=== PATIENT | female | born 1980 | race Caucasian/White ===

== ENCOUNTER 2018-02-06 13:48 | Emergency (ER) | payer OTHER ==
[2018-02-06 14:03] VITALS: BP 113/73; PULSE 90; TEMP 98.3; BMI 34.7
--- NOTE | 2018-02-06 16:21 | PDOC ---
History of Present Illness - General Chief Complaint: Laceration Stated Complaint: LACERATION Time Seen by Provider: 02/06/18 14:53 History Source: Patient - History of Present Illness Timing/Duration: reports: this morning Location: reports: other (hand) Past History - Past Medical History Allergies/Adverse Reactions: Allergies Allergy/AdvReac Type Severity Reaction Status Date / Time No Known Drug Allergies Allergy Verified 02/06/18 14:03 Home Medications: Ambulatory Orders NK [No Known Home Medication] 02/06/18 Anemia: No Asthma: No Cancer: No Cardiac Disorders: No CVA: No COPD: No CHF: No DVT: No Dementia: No Diabetes: No GI Disorders: No Disorders: No HTN: No Hypercholesterolemia: No Liver Disease: No Seizures: No Thyroid Disease: No - Surgical History Neurologic Surgery: Yes (neck fusion, lower back fusion) - Suicide/Smoking/Psychosocial Hx Smoking Status: No Smoking History: Never smoked Number of Cigarettes Smoked Daily: 0 Hx Alcohol Use: No Drug/Substance Use Hx: No Substance Use Type: None Hx Substance Use Treatment: No Review of Systems - Review of Systems Neurological: No: Numbness *Physical Exam - Vital Signs Last Vital Signs Temp Pulse Resp BP Pulse Ox 98.3 F 90 18 113/73 97 02/06/18 14:01 02/06/18 14:01 02/06/18 14:01 02/06/18 14:01 02/06/18 14:01 - Physical Exam General Appearance: Yes: Appropriately Dressed. No: Apparent Distress HEENT: positive: Normal Voice Neck: positive: Supple Respiratory/Chest: negative: Respiratory Distress Integumentary: positive: Dry, Warm Neurologic: positive: Fully Oriented, Alert, Normal Mood/Affect Procedures - Laceration/Wound Repair Right Hand Wound Length: 2.6 to 5.0 cm Wound Explored: clean Wound's Depth, Shape: superficial Irrigated w/ Saline: Yes Betadine Prep: Yes Amount of Anesthetic (ccs): 9 Wound Repaired With: Sutures Suture Size/Type: 5:0, nylon Number of Sutures: 10 Sterile Dressing Applied: Yes Medical Decision Making - Medical Decision Making 02/06/18 15:16 38 yo F, no sig hx, here w/ R thumb lac while handling broken glass today. No sensory changes. Tetanus UTD See exam Thumb lac -tetanus UTD -xr neg for fb -lac repair 02/06/18 16:22 *DC/Admit/Observation/Transfer Diagnosis at time of Disposition: Laceration - Discharge Dispostion Condition at time of disposition: Good - Referrals Referrals: Twin Woo MD [Primary Care Provider] - - Patient Instructions Printed Discharge Instructions: DI for Laceration Repair Additional Instructions: Keep dressing in place for at least 24 hours after which one can be opened to air and cover loosely with large bandage.. You can gently cleaned wound with mild soap and water after 24 hours to prevent crusting over the suture knots. You can also apply an antibiotic ointment twice a day until sutures are removed. Return for redness, discharge or fever Sutures are removed in 7 days - Post Discharge Activity
== END 2018-02-06 16:27 | disposition home or self-care (01) ==
LOC: JERFT 13:48
PROC: 0HQFXZZ Repair Right Hand Skin, External Approach (ICD-10-PCS; principal; 2018-02-06)
DX: S61.011A Laceration without foreign body of right thumb without damage to nail, initial encounter (principal); W25.XXXA Contact with sharp glass, initial encounter; Y93.89 Activity, other specified; Y92.89 Other specified places as the place of occurrence of the external cause; Y99.8 Other external cause status
CPT/HCPCS: 12011; 73130-TC-RT-FY; 99281-25

== ENCOUNTER 2018-02-13 15:34 | Emergency (ER) | payer OTHER ==
[2018-02-13 15:39] VITALS: BP 109/76; PULSE 100; TEMP 97.8; BMI 36.6
--- NOTE | 2018-02-13 15:56 | PDOC ---
Suture Removal/Wound Check HPI - History of Present Illness Chief Complaint: Suture/Staple Removal(Here) Stated Complaint: Suture/Staple Removal(Here) Time Seen by Provider: 02/13/18 15:55 History Source: Yes: Patient Exam Limitations: Yes: No Limitations Treated at: [facility] ED - Previous ED Treatment Type of procedure performed on last visit: Yes: Laceration Repair Tetanus Immunization: Yes: Up to Date - Onset of Previous Treatment Select one - (for the option above): Days (7) Past History - Past Medical History Allergies/Adverse Reactions: Allergies Allergy/AdvReac Type Severity Reaction Status Date / Time No Known Drug Allergies Allergy Verified 02/13/18 15:36 Home Medications: Ambulatory Orders NK [No Known Home Medication] 02/06/18 Anemia: No Asthma: No Cancer: No Cardiac Disorders: No CVA: No COPD: No CHF: No DVT: No Dementia: No Diabetes: No GI Disorders: No Disorders: No HTN: No Hypercholesterolemia: No Liver Disease: No Seizures: No Thyroid Disease: No - Surgical History Cholecystectomy: Yes Neurologic Surgery: Yes (neck fusion, lower back fusion) - Immunization History Immunization Up to Date: Yes - Suicide/Smoking/Psychosocial Hx Smoking Status: No Smoking History: Never smoked Number of Cigarettes Smoked Daily: 0 Information on smoking cessation initiated: No Hx Alcohol Use: No Drug/Substance Use Hx: No Substance Use Type: None Hx Substance Use Treatment: No Suture Removal/Wound Check PE - Physical Exam Laceration/Wound Check Symptoms: reports: None Location of Laceration/Wound: right: Hand (thumb) *Review of Systems - Review of Systems Able to Perform ROS?: Yes Constitutional: No: Fever Musculoskeletal: No: Joint Pain, Joint Swelling Integumentary: Yes: Other (no signs of infection). No: Bruising, Rash Neurological: No: Numbness, Tingling *Physical Exam - Vital Signs Last Vital Signs Temp Pulse Resp BP Pulse Ox 97.8 F 100 H 18 109/76 100 02/13/18 15:36 02/13/18 15:36 02/13/18 15:36 02/13/18 15:36 02/13/18 15:36 Medical Decision Making - Medical Decision Making 02/13/18 16:12 He 38-year-old female here for suture removal right hand, no signs of infection , small amount of dehiscence with some sutures removed, remainder remain, Steri- Strips applied, patient will return in 3 days for further evaluation. *DC/Admit/Observation/Transfer Diagnosis at time of Disposition: Visit for suture removal - Discharge Dispostion Disposition: HOME Condition at time of disposition: Stable Decision to Admit order: No - Referrals Referrals: Twin Woo MD [Primary Care Provider] - - Patient Instructions Printed Discharge Instructions: Skin Wound Additional Instructions: Clean with soap and water 2-3 times daily, apply bacitracin Have her reevaluated if redness, pus, fever or getting worse return in 3 days to have rest of suture removed if ready - Post Discharge Activity
== END 2018-02-13 16:11 | disposition home or self-care (01) ==
LOC: JERFT 15:34
DX: Z48.817 Encounter for surgical aftercare following surgery on the skin and subcutaneous tissue (principal); Z48.02 Encounter for removal of sutures
CPT/HCPCS: 99281-25

== ENCOUNTER 2018-08-11 10:49 | Emergency (ER) | payer OTHER ==
[2018-08-11 11:01] VITALS: BP 113/66; PULSE 74; TEMP 98; BMI 36.6
--- NOTE | 2018-08-11 11:54 | PDOC ---
History of Present Illness - General Chief Complaint: Sore Throat Stated Complaint: ABD PAIN/SORE THROAT Time Seen by Provider: 08/11/18 11:43 History Source: Patient Exam Limitations: No Limitations (sorethroat and cough X 3 days) - History of Present Illness Associated Symptoms: reports: cough. denies: diaphoresis, fever/chills, headaches, loss of appetite, rash, shortness of breath Past History - Travel Close contact w/someone who was outside of country & ill: No - Past Medical History Allergies/Adverse Reactions: Allergies Allergy/AdvReac Type Severity Reaction Status Date / Time No Known Drug Allergies Allergy Verified 08/11/18 11:00 Home Medications: Ambulatory Orders Benzonatate [Tessalon Pearls -] 100 mg PO TID #21 capsule 08/11/18 Ibuprofen 600 mg PO ACDIN 7 Days #21 tablet 08/11/18 Anemia: No Asthma: No Cancer: No Cardiac Disorders: No CVA: No COPD: No CHF: No DVT: No Dementia: No Diabetes: No GI Disorders: No Disorders: No HTN: No Hypercholesterolemia: No Liver Disease: No Seizures: No Thyroid Disease: No - Surgical History Cholecystectomy: Yes Neurologic Surgery: Yes (neck fusion, lower back fusion) - Immunization History Immunization Up to Date: Yes - Suicide/Smoking/Psychosocial Hx Smoking Status: No Smoking History: Never smoked Number of Cigarettes Smoked Daily: 0 Hx Alcohol Use: No Drug/Substance Use Hx: No Substance Use Type: None Hx Substance Use Treatment: No Review of Systems - Review of Systems Constitutional: No: Chills, Fever HEENTM: Yes: Nose Congestion, Throat Pain Respiratory: Yes: Cough, Productive cough. No: Shortness of Breath, Wheezing Cardiac (ROS): No: Chest Pain Neurological: No: Headache *Physical Exam - Vital Signs Last Vital Signs Temp Pulse Resp BP Pulse Ox 98 F 74 18 113/66 98 08/11/18 11:00 08/11/18 11:00 08/11/18 11:00 08/11/18 11:00 08/11/18 11:00 - Physical Exam General Appearance: Yes: Nourished HEENT: positive: EOMI, YESSICA, Normal ENT Inspection, Pharyngeal Erythema, Nasal Congestion, Rhinorrhea. negative: Tonsillar Exudate, Tonsillar Erythema Respiratory/Chest: positive: Lungs Clear, Normal Breath Sounds Cardiovascular: positive: Regular Rhythm, Regular Rate, S1, S2 Musculoskeletal: positive: Normal Inspection Extremity: positive: Normal Capillary Refill, Normal Inspection Integumentary: positive: Normal Color Neurologic: positive: academic director II-XII NML intact, Fully Oriented, Alert, Normal Response Medical Decision Making - Medical Decision Making 08/11/18 11:53 38y/o F with sorethroat and cough X 2 days, denies f/c, CP or SOB exam with mildly erythetamous oropharyx RS sent 08/11/18 12:45 RS neg *DC/Admit/Observation/Transfer Diagnosis at time of Disposition: URI, acute - Discharge Dispostion Disposition: HOME Condition at time of disposition: Stable Decision to Admit order: No - Prescriptions Prescriptions: Benzonatate [Tessalon Pearls -] 100 mg PO TID #21 capsule Ibuprofen 600 mg PO ACDIN 7 Days #21 tablet - Referrals Referrals: Colleen Rivera MD [Primary Care Provider] - - Patient Instructions Printed Discharge Instructions: Common Cold Additional Instructions: Your strep test was negative . Please gargle with salt warm water, take motrin for pain Follow up with your primary care doctor Return to the Emergency Department if worsening symptoms occurs. - Post Discharge Activity
== END 2018-08-11 12:50 | disposition home or self-care (01) ==
LOC: JERFT 10:49
DX: J06.9 Acute upper respiratory infection, unspecified (principal)
CPT/HCPCS: 87070; 87880; 99281-25

== ENCOUNTER 2018-08-13 19:34 | Emergency (ER) | payer OTHER ==
[2018-08-13 19:48] VITALS: BP 114/75; PULSE 94; TEMP 98.1; BMI 37.5
--- NOTE | 2018-08-13 21:13 | PDOC ---
History of Present Illness - General Chief Complaint: Edema Stated Complaint: EYE SWELLING Time Seen by Provider: 08/13/18 20:51 History Source: Patient Exam Limitations: No Limitations Past History - Past Medical History Allergies/Adverse Reactions: Allergies Allergy/AdvReac Type Severity Reaction Status Date / Time No Known Drug Allergies Allergy Verified 08/11/18 11:00 Home Medications: Ambulatory Orders Benzonatate [Tessalon Pearls -] 100 mg PO TID #21 capsule 08/11/18 Ibuprofen 600 mg PO ACDIN 7 Days #21 tablet 08/11/18 Amoxicillin/Potassium Clav [Augmentin 875-125 Tablet] 1 each PO BID #14 tablet 08/13/18 Anemia: No Asthma: No Cancer: No Cardiac Disorders: No CVA: No COPD: No CHF: No DVT: No Dementia: No Diabetes: No GI Disorders: No Disorders: No HTN: No Hypercholesterolemia: No Liver Disease: No Seizures: No Thyroid Disease: No - Surgical History Cholecystectomy: Yes Neurologic Surgery: Yes (neck fusion, lower back fusion) - Immunization History Immunization Up to Date: Yes - Suicide/Smoking/Psychosocial Hx Smoking Status: No Smoking History: Never smoked Number of Cigarettes Smoked Daily: 0 Hx Alcohol Use: No Drug/Substance Use Hx: No Substance Use Type: None Hx Substance Use Treatment: No *Physical Exam - Vital Signs Last Vital Signs Temp Pulse Resp BP Pulse Ox 98.1 F 94 H 20 114/75 97 08/13/18 19:45 08/13/18 19:45 08/13/18 19:45 08/13/18 19:45 08/13/18 19:45 - Physical Exam HEENT: positive: EOMI, YESSICA, Other (+R upper eyelid swelling with erythema, no pain on eye movement, no proptosis, no chemosis, no stye noted) Neurologic: positive: Alert, Normal Mood/Affect Medical Decision Making - Medical Decision Making 38 y/o F with hx of spinal fusion, carpal tunnel presents with R upper eyelid swelling from yesterday. Denies trauma, fever, changes to vision, pain with eye movement, discharge, itching, photophobia, n/v. Concern for possible developing periorbital cellulitis No suspicion for orbital cellulitis given PE Will start on Augmentin Return precautions d/w patient 08/13/18 21:09 *DC/Admit/Observation/Transfer Diagnosis at time of Disposition: Periorbital cellulitis Qualifiers: Laterality: right Qualified Code(s): L03.213 - Periorbital cellulitis - Discharge Dispostion Disposition: HOME Condition at time of disposition: Stable Decision to Admit order: No - Prescriptions Prescriptions: Amoxicillin/Potassium Clav [Augmentin 875-125 Tablet] 1 each PO BID #14 tablet - Referrals - Patient Instructions Printed Discharge Instructions: DI for Cellulitis -- Adult Additional Instructions: Thank you for choosing [facility]. It was a pleasure taking care of you. You may possibly have concern for infection around the eye, for which you were started on Augmentin Take as prescribed and follow-up with your PCP in 2 days. Return to the Emergency Department if your symptoms worsen or persist, you have fever, changes in vision, pain on eye movement, increased swelling/redness or other concerning symptoms. - Post Discharge Activity
== END 2018-08-13 21:14 | disposition home or self-care (01) ==
LOC: JERFT 19:34
DX: L03.213 Periorbital cellulitis (principal)
CPT/HCPCS: 99281-25

== ENCOUNTER 2018-12-10 05:38 | Emergency (ER) | payer OTHER | END 2018-12-10 08:04 | disposition home or self-care (01) | LOC: JER 05:38 ==

== ENCOUNTER 2019-01-04 13:08 | Emergency (ER) | payer OTHER ==
[2019-01-04 13:20] VITALS: BP 114/77; PULSE 80; TEMP 97.9; BMI 35.3
[2019-01-04] MEDS ORDERED: KETOROLAC TROMETHAMINE 60 MG/2 ML VIAL IM ONE (14:17)
[2019-01-04] MEDS ORDERED: LIDOCAINE 5% TOPICAL PATCH TP ONE (14:17)
[2019-01-04] MEDS ORDERED: LIDOCAINE 5% TOPICAL PATCH ONE (14:21)
[2019-01-04] MEDS ORDERED: KETOROLAC TROMETHAMINE 30 MG/1 ML VIAL ONE (14:21)
--- NOTE | 2019-01-04 14:21 | PDOC ---
History of Present Illness - General Chief Complaint: Pain Stated Complaint: LOWER BACK PAIN Time Seen by Provider: 01/04/19 14:05 History Source: Patient Exam Limitations: No Limitations Past History - Travel Traveled outside of the country in the last 30 days: No Close contact w/someone who was outside of country & ill: No - Past Medical History Allergies/Adverse Reactions: Allergies Allergy/AdvReac Type Severity Reaction Status Date / Time No Known Drug Allergies Allergy Verified 01/04/19 13:20 Home Medications: Ambulatory Orders Benzonatate [Tessalon Pearls -] 100 mg PO TID #21 capsule 08/11/18 Ibuprofen 600 mg PO ACDIN 7 Days #21 tablet 08/11/18 Amoxicillin/Potassium Clav [Augmentin 875-125 Tablet] 1 each PO BID #14 tablet 08/13/18 Phenol/Glycerin [Chloraseptic Max [place]] 30 ml MM TID PRN #1 spray 12/10/18 Cyclobenzaprine HCl [Flexeril -] 10 mg PO HS #10 tablet 01/04/19 Ibuprofen 800 mg PO TID #30 tablet 01/04/19 Anemia: No Asthma: No Cancer: No Cardiac Disorders: No CVA: No COPD: No CHF: No DVT: No Dementia: No Diabetes: No GI Disorders: No Disorders: No HTN: No Hypercholesterolemia: No Liver Disease: No Seizures: No Thyroid Disease: No Other medical history: chronic back pain - Surgical History Cholecystectomy: Yes Neurologic Surgery: Yes (neck fusion, lower back fusion) - Immunization History Td Vaccination: Yes TDAP Vaccination: Yes Immunization Up to Date: Yes - Suicide/Smoking/Psychosocial Hx Smoking Status: No Smoking History: Never smoked Have you smoked in the past 12 months: No Number of Cigarettes Smoked Daily: 0 Hx Alcohol Use: No Drug/Substance Use Hx: No Substance Use Type: None Hx Substance Use Treatment: No Review of Systems - Review of Systems Able to Perform ROS?: Yes Comments:: 01/04/19 14:15 CONSTITUTIONAL: Absent: fever, chills, diaphoresis, generalized weakness, malaise, loss of appetite GASTROINTESTINAL: Absent: abdominal pain, abdominal distension, nausea, vomiting, diarrhea, constipation, melena, hematochezia GENITOURINARY: Absent: dysuria, frequency, urgency, hesitancy, hematuria, flank pain, genital pain MUSCULOSKELETAL: Present: low back pain Absent: arthralgia, joint swelling SKIN: Absent: rash, itching, pallor NEUROLOGIC: Absent: headache, focal weakness or paresthesias, dizziness, unsteady gait, seizure, mental status changes, bladder or bowel incontinence PSYCHIATRIC: Absent: anxiety, depression, suicidal or homicidal ideation, hallucinations. Is the patient limited Slovenian proficient: No *Physical Exam - Vital Signs Last Vital Signs Temp Pulse Resp BP Pulse Ox 97.9 F 80 18 114/77 99 01/04/19 13:17 01/04/19 13:17 01/04/19 13:17 01/04/19 13:17 01/04/19 13:17 - Physical Exam Comments: 01/04/19 14:16 GENERAL: Well developed, well nourished. Awake and alert. No acute distress. HEENT: Normocephalic, atraumatic. PERRLA, EOMI. No conjunctival pallor. Sclera are non- icteric. Moist mucous membranes. Oropharynx is clear. NECK: Supple. Full ROM. No JVD. Carotid pulses 2+ and symmetric, without bruits. No thyromegaly. No lymphadenopathy. MUSCULOSKELETAL TTP of the B/L paraspinous muscles, L5-S1, with palpable knot consistent with muscle spasm. (-) straight leg raise. No midline tenderness. Normal range of motion at all joints. No bony deformities or tenderness. No CVA tenderness. EXTREMITIES: No cyanosis. No clubbing. No edema. No calf tenderness. SKIN: Warm and dry. Normal capillary refill. No rashes. No jaundice. NEUROLOGICAL: Alert, awake, appropriate. Cranial nerves 2-12 intact. No deficits to light touch and temperature in face, upper extremities and lower extremities. No motor deficits in the in face, upper extremities and lower extremities. Normoreflexic in the upper and lower extremities. Normal speech. Toes are down- going bilaterally. Gait is normal without ataxia. PSYCHIATRIC: Cooperative. Good eye contact. Appropriate mood and affect. Medical Decision Making - Medical Decision Making 01/04/19 14:17 The patient is a 38-year-old obese female who presents to the ER today with low back pain. She states that she had back pain starting at 11. It is worse with movement. She states that yesterday she drove up to [place] and slept on a couch. She then drove back to [place] this morning. She has not taken any medication for her symptoms. Denies fevers, chills, trauma, numbness and tingling to the extremities, weakness to the extremities, saddle anesthesia and bladder bowel incontinence. A/P: Low back pain -Pt with TTP of the B/L paraspinous muscles, L5-S1, with palpable knot consistent with muscle spasm. (-) straight leg raise. No midline tenderness -No trauma, or fever. No saddle anesthesia or bladder/bowel incontinence. No CVA tenderness. -Pt is neurologically intact on exam with no focal findings. -Toradol given with relief of symptoms -DC home. Pt to f/u with her PCP. Ortho referral given. -I discussed the physical exam findings, ancillary test results and final diagnoses with the patient. I answered all of the patient's questions. The patient was satisfied with the care received and felt comfortable with the discharge plan and treatment plan. The Patient agrees to follow up with the primary care physician/specialist within 24-72 hours. Return precautions were given. *DC/Admit/Observation/Transfer Diagnosis at time of Disposition: Low back pain Qualifiers: Chronicity: acute Back pain laterality: bilateral Sciatica presence: without sciatica Qualified Code(s): M54.5 - Low back pain - Discharge Dispostion Disposition: HOME Condition at time of disposition: Stable Decision to Admit order: No - Referrals Referrals: Twin Woo MD [Primary Care Provider] - - Patient Instructions Printed Discharge Instructions: DI for Low Back Pain Additional Instructions: You were evaluated for your low back pain today. It is most likely due to a muscle spasm Please take the Motrin as directed Take the Flexiril every 8 hours the first day. Then take the medication at night only. Do not drink or drive after taking this medication as it may make you drowsy. You may apply warm compresses to the area. Please follow up with orthopedics if your symptoms do not improve this week; a referral has been provided to you Return to the ER for worsening pain despite treatment, numbness/weakness down the extremities, changes in the way you walk, numbness/tingling to the groin, if you have bladder/bowel incontinence, or if you have any changes in your symptoms. - Post Discharge Activity Forms/Work/School Notes: Back to Work
[2019-01-04] MEDS ORDERED: LIDOCAINE PATCH REMOVAL MC SCH (22:00)
== END 2019-01-04 14:32 | disposition home or self-care (01) ==
LOC: JERFT 13:08
PROC: 3E0233Z Introduction of Anti-inflammatory into Muscle, Percutaneous Approach (ICD-10-PCS; principal; 2019-01-04)
DX: M54.5 Low back pain (principal); E66.9 Obesity, unspecified; Z68.35 Body mass index [BMI] 35.0-35.9, adult
CPT/HCPCS: 96372; 99281-25

== ENCOUNTER 2020-10-22 04:23 | Day surgery (SDC) | payer OTHER ==
[2020-10-19 11:57] VITALS: BMI 38.0
[2020-10-22] MEDS ORDERED: ROPIVACAINE HCL 0.5% 30ML VIAL ONE (08:52)
[2020-10-22] MEDS ORDERED: MIDAZOLAM HCL 2 MG/2 ML SINGLE DOSE VIAL ONE ×2 (08:53)
[2020-10-22] MEDS ORDERED: LIDOCAINE HCL/PF 2% SDV 5ML VIAL ONE (10:13)
[2020-10-22] MEDS ORDERED: ONDANSETRON 4 MG/2 ML VIAL ONE (10:13)
[2020-10-22] MEDS ORDERED: DEXAMETHASONE SOD PHOSPHATE 4 MG/1 ML VIAL ONE (10:13)
[2020-10-22] MEDS ORDERED: PROPOFOL 20 ML ONE (10:14)
[2020-10-22] MEDS ORDERED: ceFAZolin SODIUM 1 GM VIAL ONE (10:35)
[2020-10-22] MEDS ORDERED: ceFAZolin SODIUM 1 GM VIAL IVPB ONE (10:35)
[2020-10-22] MEDS ORDERED: ONDANSETRON 4 MG/2 ML VIAL IVPUSH PRN (12:29)
[2020-10-22] MEDS ORDERED: oxyCODONE HCL 5 MG TABLET PO PRN (12:29)
[2020-10-22] MEDS ORDERED: PROMETHAZINE HCL 25 MG/1 ML VIAL IVPB PRN (12:29)
[2020-10-22] MEDS ORDERED: LACTATED RINGERS SOLUTION 1,000 ML IV SCH (12:30)
[2020-10-22 15:42] VITALS: BP 110/58; PULSE 74; TEMP 97.5
== END 2020-10-22 15:36 | disposition home or self-care (01) ==
LOC: JASU-SURG 04:23
PROVIDERS: ATTEND Orthopaedic Surgery
PROC: 0PB94ZZ Excision of Right Clavicle, Percutaneous Endoscopic Approach (ICD-10-PCS; 2020-10-22)
PROC: 0RNJ4ZZ Release Right Shoulder Joint, Percutaneous Endoscopic Approach (ICD-10-PCS; 2020-10-22)
PROC: 0RNJ4ZZ Release Right Shoulder Joint, Percutaneous Endoscopic Approach (ICD-10-PCS; principal; 2020-10-22 10:00)
DX: M75.41 Impingement syndrome of right shoulder (principal); M13.811 Other specified arthritis, right shoulder; M75.111 Incomplete rotator cuff tear or rupture of right shoulder, not specified as traumatic
CPT/HCPCS: 81025; 88304-TC; 94760

== ENCOUNTER 2021-03-03 13:24 | Emergency (ER) | payer OTHER ==
[2021-03-03 13:40] VITALS: BP 117/78; PULSE 89; TEMP 97; BMI 37.6
[2021-03-03] MEDS ORDERED: ACETAMINOPHEN 500 MG TABLET (FP) PO ONE (14:16)
== END 2021-03-03 17:31 | disposition home or self-care (01) ==
LOC: JERFT 13:24 → JER 13:24 → JERFT 17:31
DX: M79.642 Pain in left hand (principal)
CPT/HCPCS: 73130-TC-LT-FY; 99284-25

== ENCOUNTER 2021-04-02 01:35 | Emergency (ER) | payer OTHER ==
[2021-04-02 02:13] VITALS: BP 110/74; PULSE 105; TEMP 99.1; BMI 36.9
[2021-04-02] MEDS ORDERED: ACETAMINOPHEN 1000 MG/100 ML VIAL IVPB ONE (02:21)
[2021-04-02] MEDS ORDERED: SODIUM CHLORIDE 1,000 ML IV STA (02:21)
[2021-04-02] MEDS ORDERED: ACETAMINOPHEN INJECTION 100 ML IVPB ONE (02:57)
[2021-04-02 03:41] LABS: BASO % 0.2 % (0-2.0); EOS % 0.6 % (0-4.5); HEMATOCRIT 34.3 % (32.4-45.2); HEMOGLOBIN 11.6 GM/dL (10.7-15.3); MCH 28.1 pg (25.7-33.7); MCHC 33.7 g/dl (32.0-36.0); MEAN CELL VOLUME 83.2 fl (80-96); MEAN PLT VOLUME 8.1 fl (7.5-11.1); MONO % 5.5 % (3.8-10.2); NEUT % 78.7 % (42.8-82.8); PLATELET COUNT 393 10^3/uL (134-434); RBC 4.12 M/mm3 (3.60-5.2); RDW 14.2 % (11.6-15.6); WHITE BLOOD COUNT 11.3 K/mm3 (4.0-10.0)
[2021-04-02 04:01] LABS: CALCIUM 9.7 mg/dL (8.5-10.1)
[2021-04-02 04:02] LABS: ALBUMIN 3.8 g/dl (3.4-5.0); BLOOD UREA NITROGEN 11.8 mg/dL (7-18)
[2021-04-02 04:05] LABS: CREATININE 0.7 mg/dL (0.55-1.3)
[2021-04-02 04:07] LABS: BILIRUBIN,TOTAL 1.2 mg/dL (0.2-1); TOT PROT 7.8 g/dl (6.4-8.2)
[2021-04-02 05:32] LABS: EPI CELLS 28 /uL (0-25.1); HYALINE CASTS 0 /uL (0-3.1); PH,URINE 5.5 (5.0-8.0); URINE APPEARANCE CLEAR; URINE BACTERIA 186 /uL (0-1359); URINE BILIRUBIN NEGATIVE (NEGATIVE); URINE COLOR YELLOW; URINE GLUCOSE (UA) NEGATIVE (NEGATIVE); URINE KETONE TRACE (NEGATIVE); URINE LEUK ESTERASE TRACE (NEGATIVE); URINE NITRITE NEGATIVE (NEGATIVE); URINE PROTEIN NEGATIVE (NEGATIVE); URINE RBC 33 /uL (0-23.9); URINE UROBILINOGEN 0.2 mg/dL (0.2-1.0); URINE WBC 14 /uL (0-25.8)
== END 2021-04-02 06:51 | disposition home or self-care (01) ==
LOC: JER 01:35
PROC: 3E033NZ Introduction of Analgesics, Hypnotics, Sedatives into Peripheral Vein, Percutaneous Approach (ICD-10-PCS; principal; 2021-04-02)
PROC: 3E0337Z Introduction of Electrolytic and Water Balance Substance into Peripheral Vein, Percutaneous Approach (ICD-10-PCS; 2021-04-02)
DX: R10.9 Unspecified abdominal pain (principal); K59.00 Constipation, unspecified
CPT/HCPCS: 36415; 74177-TC; 80053; 81003; 84703; 85025; 87086; 96361; 96374; 99284-25; C9803; J0131; Q9967; U0003; U0005

== ENCOUNTER 2022-06-03 02:31 | Emergency (ER) | payer OTHER ==
[2022-06-03 02:45] VITALS: BP 104/68; PULSE 97; RESP 18; TEMP 98; BMI 37.5
[2022-06-03 03:40] LABS: PH,URINE 5.5 (5.0-8.0); URINE APPEARANCE CLOUDY; URINE BILIRUBIN NEGATIVE (NEGATIVE); URINE COLOR YELLOW; URINE GLUCOSE (UA) 3+ (NEGATIVE); URINE KETONE TRACE (NEGATIVE); URINE LEUK ESTERASE NEGATIVE (NEGATIVE); URINE NITRITE NEGATIVE (NEGATIVE); URINE PROTEIN NEGATIVE (NEGATIVE); URINE UROBILINOGEN 0.2 mg/dL (0.2-1.0)
[2022-06-03 03:43] LABS: HCG,QUALITATIVE URINE Negative
[2022-06-03 04:18] LABS: BASO % 0.6 % (0-2.0); EOS % 1.3 % (0-4.5); HEMATOCRIT 40.6 % (32.4-45.2); HEMOGLOBIN 13.6 GM/dL (10.7-15.3); LYMPH % 13.8 % (8-40); MCH 29.7 pg (25.7-33.7); MCHC 33.6 g/dl (32.0-36.0); MEAN CELL VOLUME 88.4 fl (80-96); MEAN PLT VOLUME 7.3 fl (7.5-11.1); MONO % 5.2 % (3.8-10.2); NEUT % 79.1 % (42.8-82.8); PLATELET COUNT 341 10^3/uL (134-434); RBC 4.59 M/mm3 (3.60-5.2); RDW 13.6 % (11.6-15.6); WHITE BLOOD COUNT 10.8 K/mm3 (4.0-10.0)
[2022-06-03 04:29] LABS: INR 1.12 (0.83-1.09); PROTHROMBIN TIME (PATIENT) 12.9 SEC (9.7-13.0)
[2022-06-03 04:32] LABS: ACTIVATED PTT 31.6 SECONDS (25.2-36.5)
[2022-06-03 04:37] LABS: CALCIUM 9.2 mg/dL (8.5-10.1)
[2022-06-03 04:38] LABS: ALBUMIN 3.9 g/dl (3.4-5.0); BLOOD UREA NITROGEN 13.8 mg/dL (7-18)
[2022-06-03 04:40] LABS: CREATININE 0.7 mg/dL (0.55-1.3)
[2022-06-03 04:42] LABS: BILIRUBIN,TOTAL 1.4 mg/dL (0.2-1); TOT PROT 7.4 g/dl (6.4-8.2)
== END 2022-06-03 06:28 | disposition home or self-care (01) ==
LOC: JER 02:31
DX: K57.92 Diverticulitis of intestine, part unspecified, without perforation or abscess without bleeding (principal)
CPT/HCPCS: 0241U-QW; 36415; 74177-TC; 80053; 81003; 83690; 84703; 85025; 85610; 85730; 87086; 99285-25; Q9967

== ENCOUNTER 2022-06-04 21:39 | Emergency (ER) | payer OTHER ==
[2022-06-04 22:00] VITALS: BP 119/75; PULSE 91; RESP 20; TEMP 97.9; BMI 37.5
[2022-06-04] MEDS ORDERED: IBUPROFEN 600 MG TABLET (FP) PO ONE ×2 (23:21→23:26)
== END 2022-06-05 00:16 | disposition home or self-care (01) ==
LOC: JER 21:39
DX: M25.561 Pain in right knee (principal)
CPT/HCPCS: 73562-TC-RT-FY; 99283-25

== ENCOUNTER 2022-06-25 13:43 | Emergency (ER) | payer OTHER ==
[2022-06-25 14:05] VITALS: BP 110/70; PULSE 84; RESP 18; TEMP 97.9; BMI 38.0
[2022-06-25] MEDS ORDERED: ACETAMINOPHEN WITH CODEINE 300MG/30MG TABLET PO ONE (14:28)
[2022-06-25] MEDS ORDERED: LIDOCAINE 5% TOPICAL PATCH TP ONE (14:28)
[2022-06-25] MEDS ORDERED: LIDOCAINE 5% TOPICAL PATCH ONE (14:39)
[2022-06-25] MEDS ORDERED: ACETAMINOPHEN W/ CODEINE LIQ 5 ML CUP PO ONE (15:00)
[2022-06-25] MEDS ORDERED: ACETAMINOPHEN W/ CODEINE LIQ 5 ML CUP ONE (15:02)
[2022-06-25 17:16] LABS: URINE APPEARANCE CLEAR; URINE COLOR YELLOW
[2022-06-25 17:17] LABS: EPI CELLS 0.1 /uL (0-25.1); PH,URINE 5.5 (5.0-8.0); URINE BACTERIA 11.4 /uL (0-1359); URINE BILIRUBIN NEGATIVE (NEGATIVE); URINE KETONE TRACE (NEGATIVE); URINE LEUK ESTERASE NEGATIVE (NEGATIVE); URINE NITRITE NEGATIVE (NEGATIVE); URINE PROTEIN NEGATIVE (NEGATIVE); URINE RBC 19.7 /uL (0-23.9); URINE UROBILINOGEN 0.2 mg/dL (0.2-1.0); URINE WBC 1.6 /uL (0-25.8)
[2022-06-25] MEDS ORDERED: LIDOCAINE PATCH REMOVAL MC SCH (22:00)
== END 2022-06-25 17:47 | disposition home or self-care (01) ==
LOC: JER 13:43
DX: M54.50 Low back pain, unspecified (principal)
CPT/HCPCS: 72100-TC-FY; 81003; 87086; 99284-25

== ENCOUNTER 2022-10-04 11:05 | Emergency (ER) | payer OTHER ==
[2022-10-04 11:09] VITALS: BP 103/61; PULSE 92; RESP 18; TEMP 98.2; BMI 34.4
[2022-10-04 13:36] LABS: PH,URINE 5.5 (5.0-8.0); URINE APPEARANCE CLEAR; URINE BILIRUBIN NEGATIVE (NEGATIVE); URINE COLOR YELLOW; URINE GLUCOSE (UA) 3+ (NEGATIVE); URINE KETONE NEGATIVE (NEGATIVE); URINE LEUK ESTERASE NEGATIVE (NEGATIVE); URINE NITRITE NEGATIVE (NEGATIVE); URINE PROTEIN NEGATIVE (NEGATIVE); URINE UROBILINOGEN 0.2 mg/dL (0.2-1.0)
[2022-10-04 15:20] LABS: BASO % 0.1 % (0-2.0); EOS % 0.5 % (0-4.5); HEMATOCRIT 40.7 % (32.4-45.2); HEMOGLOBIN 14.2 GM/dL (10.7-15.3); LYMPH % 19.7 % (8-40); MCH 30.3 pg (25.7-33.7); MCHC 34.8 g/dl (32.0-36.0); MEAN CELL VOLUME 86.9 fl (80-96); MEAN PLT VOLUME 7.9 fl (7.5-11.1); MONO % 5.3 % (3.8-10.2); NEUT % 74.4 % (42.8-82.8); PLATELET COUNT 358 10^3/uL (134-434); POTASSIUM 4.1 mmol/L (3.5-5.1); RBC 4.69 M/mm3 (3.60-5.2); RDW 13.1 % (11.6-15.6); WHITE BLOOD COUNT 8.8 K/mm3 (4.0-10.0)
[2022-10-04 15:23] LABS: CALCIUM 9.6 mg/dL (8.5-10.1)
[2022-10-04 15:24] LABS: ALBUMIN 3.9 g/dl (3.4-5.0); BLOOD UREA NITROGEN 14.2 mg/dL (7-18)
[2022-10-04 15:26] LABS: BILIRUBIN,DIRECT 0.4 mg/dL (0.0-0.2); CREATININE 0.6 mg/dL (0.55-1.3)
[2022-10-04 15:28] LABS: TOT PROT 7.5 g/dl (6.4-8.2)
[2022-10-04 15:29] LABS: BILIRUBIN,TOTAL 1.5 mg/dL (0.2-1)
[2022-10-04] MEDS ORDERED: CIPROFLOXACIN 500 MG TABLET (RESTRICTED TO ID) PO ONE (18:37)
[2022-10-04] MEDS ORDERED: metroNIDAZOLE 250 MG TABLET PO ONE (18:37)
[2022-10-04] MEDS ORDERED: metroNIDAZOLE 250 MG TABLET ONE (18:56)
== END 2022-10-04 19:29 | disposition home or self-care (01) ==
LOC: JER 11:05
DX: R10.31 Right lower quadrant pain (principal); R10.32 Left lower quadrant pain; K57.32 Diverticulitis of large intestine without perforation or abscess without bleeding
CPT/HCPCS: 36415; 74177-TC; 80048; 80076; 81003; 84703; 85025; 87086; 87491; 87591; 99285-25; Q9967

== ENCOUNTER 2023-03-29 18:56 | Emergency (ER) | payer OTHER ==
[2023-03-29 19:04] VITALS: BP 118/76; PULSE 88; RESP 18; TEMP 98.2; BMI 32.9
[2023-03-29] MEDS ORDERED: ACETAMINOPHEN 1000 MG/100 ML BAG IVPB ONE (20:14)
[2023-03-29 20:27] LABS: BASO % 0.4 % (0-2.0); EOS % 3.4 % (0-4.5); HEMATOCRIT 39.4 % (32.4-45.2); HEMOGLOBIN 13.1 GM/dL (10.7-15.3); LYMPH % 12.4 % (8-40); MCHC 33.2 g/dl (32.0-36.0); MEAN CELL VOLUME 90.1 fl (80-96); MEAN PLT VOLUME 7.9 fl (7.5-11.1); NEUT % 79.8 % (42.8-82.8); PLATELET COUNT 351 10^3/uL (134-434); RBC 4.37 M/mm3 (3.60-5.2); RDW 12.4 % (11.6-15.6); WHITE BLOOD COUNT 11.5 K/mm3 (4.0-10.0)
[2023-03-29 20:29] LABS: PH,URINE 5.5 (5.0-8.0); URINE APPEARANCE CLEAR; URINE BILIRUBIN NEGATIVE (NEGATIVE); URINE COLOR YELLOW; URINE GLUCOSE (UA) 3+ (NEGATIVE); URINE KETONE TRACE (NEGATIVE); URINE LEUK ESTERASE NEGATIVE (NEGATIVE); URINE NITRITE NEGATIVE (NEGATIVE); URINE PROTEIN NEGATIVE (NEGATIVE)
[2023-03-29] MEDS ORDERED: ACETAMINOPHEN INJECTION 100 ML IVPB ONE (20:34)
[2023-03-29] MEDS ORDERED: AMOX TR/POT CLAV 875MG/125MG TABLETS (FP) PO ONE (20:50)
[2023-03-29 20:53] LABS: POTASSIUM 4.2 mmol/L (3.5-5.1)
[2023-03-29 20:56] LABS: CALCIUM 9.5 mg/dL (8.5-10.1)
[2023-03-29 20:57] LABS: ALBUMIN 3.8 g/dl (3.4-5.0); BLOOD UREA NITROGEN 17.9 mg/dL (7-18); MAGNESIUM 2.1 mg/dL (1.8-2.4)
[2023-03-29 21:00] LABS: CREATININE 0.7 mg/dL (0.55-1.3)
[2023-03-29 21:01] LABS: BILIRUBIN,TOTAL 0.8 mg/dL (0.2-1)
[2023-03-29 21:02] LABS: TOT PROT 7.1 g/dl (6.4-8.2)
[2023-03-29] MEDS ORDERED: AMOX TR/POT CLAV 875MG/125MG TABLETS (FP) ONE (21:04)
== END 2023-03-29 21:46 | disposition home or self-care (01) ==
LOC: JER 18:56
PROC: 3E033NZ Introduction of Analgesics, Hypnotics, Sedatives into Peripheral Vein, Percutaneous Approach (ICD-10-PCS; principal; 2023-03-29)
DX: R10.32 Left lower quadrant pain (principal); K57.92 Diverticulitis of intestine, part unspecified, without perforation or abscess without bleeding
CPT/HCPCS: 36415; 80053; 81003; 83735; 85025; 87086; 99284-25

== ENCOUNTER 2023-04-06 15:27 | Emergency (ER) | payer OTHER ==
[2023-04-06 15:44] VITALS: BP 118/72; PULSE 71; RESP 20; TEMP 97.6; BMI 32.9
[2023-04-06] MEDS ORDERED: KETOROLAC TROMETHAMINE 30 MG/1 ML VIAL IM ONE (16:16)
[2023-04-06] MEDS ORDERED: LIDOCAINE 4% PATCH TP ONE ×2 (16:17→16:23)
[2023-04-06] MEDS ORDERED: KETOROLAC TROMETHAMINE 30 MG/1 ML VIAL ONE (16:23)
[2023-04-06] MEDS ORDERED: LIDOCAINE PATCH REMOVAL MC ONE (22:00)
== END 2023-04-06 17:03 | disposition home or self-care (01) ==
LOC: JER 15:27 → JERFT 15:27 → JER 17:03
PROC: 3E0233Z Introduction of Anti-inflammatory into Muscle, Percutaneous Approach (ICD-10-PCS; principal; 2023-04-06)
DX: M54.50 Low back pain, unspecified (principal)
CPT/HCPCS: 72100-TC-FY; 99284-25

== ENCOUNTER 2023-08-29 09:08 | Inpatient (IN) | payer OTHER ==
[2023-08-29] MEDS ORDERED: DICYCLOMINE HCL 10 MG CAPSULE ONE (10:15)
[2023-08-29] MEDS ORDERED: ACETAMINOPHEN INJECTION 100 ML IVPB ONE (10:16)
[2023-08-29] MEDS ORDERED: ONDANSETRON 4 MG/2 ML VIAL ONE (10:16)
[2023-08-29] MEDS ORDERED: FAMOTIDINE 20 MG/50 ML IVPB 20 MG/50 ML MG IVPB ONE (10:16)
[2023-08-29 10:19] LABS: BASO % 0.3 % (0-2.0); EOS % 0.8 % (0-4.5); HEMATOCRIT 41.6 % (32.4-45.2); HEMOGLOBIN 13.6 GM/dL (10.7-15.3); LYMPH % 7.6 % (8-40); MCH 29.2 pg (25.7-33.7); MCHC 32.8 g/dl (32.0-36.0); MEAN PLT VOLUME 7.7 fl (7.5-11.1); MONO % 3.3 % (3.8-10.2); PH,URINE 5.5 (5.0-8.0); PLATELET COUNT 320 10^3/uL (134-434); RBC 4.67 M/mm3 (3.60-5.2); RDW 12.9 % (11.6-15.6); URINE APPEARANCE CLEAR; URINE BILIRUBIN NEGATIVE (NEGATIVE); URINE COLOR YELLOW; URINE GLUCOSE (UA) 3+ (NEGATIVE); URINE KETONE NEGATIVE (NEGATIVE); URINE LEUK ESTERASE NEGATIVE (NEGATIVE); URINE NITRITE NEGATIVE (NEGATIVE); URINE PROTEIN TRACE (NEGATIVE); URINE UROBILINOGEN 0.2 mg/dL (0.2-1.0); WHITE BLOOD COUNT 12.3 K/mm3 (4.0-10.0)
[2023-08-29 10:24] LABS: HCG,QUALITATIVE URINE Negative
[2023-08-29] MEDS: SODIUM CHLORIDE 1,000 ML IV STA (10:30)
[2023-08-29] MEDS: DICYCLOMINE HCL 20 MG TABLET PO ONE (10:30)
[2023-08-29] MEDS: ACETAMINOPHEN 1000 MG/100 ML BAG IVPB ONE (10:31)
[2023-08-29] MEDS: ONDANSETRON 4 MG/2 ML VIAL IVPUSH ONE (10:31)
[2023-08-29] MEDS: FAMOTIDINE 20 MG/50 ML IVPB 20 MG/50 ML MG IVPB ONE (10:32)
[2023-08-29 11:54] LABS: ALBUMIN 3.9 g/dl (3.4-5.0); BLOOD UREA NITROGEN 15.5 mg/dL (7-18); CALCIUM 9.4 mg/dL (8.5-10.1)
[2023-08-29 11:57] LABS: CREATININE 0.7 mg/dL (0.55-1.3)
[2023-08-29 11:59] LABS: BILIRUBIN,TOTAL 1.7 mg/dL (0.2-1); TOT PROT 7.7 g/dl (6.4-8.2)
[2023-08-29] MEDS ORDERED: morphine SULFATE 4 MG/ML VIAL ONE ×2 (13:39→16:28)
[2023-08-29] MEDS: morphine CARPU-JECT 4 MG/1 ML DISP.SYRIN IVPUSH ONE ×2 (13:44→16:37)
[2023-08-29] MEDS ORDERED: PIPERACILLIN/TAZOB 4.5 GM 4.5 GM/100 ML BAG IVPB ONE (16:28)
[2023-08-29] MEDS: PIPERACILLIN/TAZOB 4.5 GM 4.5 GM in DEXTROSE 5%-WATER 100 ML IVPB ONE (16:37)
[2023-08-29] MEDS ORDERED: ONDANSETRON 4 MG/2 ML VIAL IVPUSH PRN (21:17)
[2023-08-29 22:29] VITALS: BMI 31.5
[2023-08-30] MEDS: DEXTROSE 5%-0.45% SALINE 1,000 ML IV SCH
[2023-08-30] MEDS: PIPERACILLIN/TAZOB 3.375 GM 3.375 GM in DEXTROSE 5%-WATER - 50 ML IVPB SCH ×2 (01:55→18:46)
[2023-08-30 09:28] LABS: BASO % 0.3 % (0-2.0); EOS % 4.2 % (0-4.5); HEMATOCRIT 37.2 % (32.4-45.2); HEMOGLOBIN 12.9 GM/dL (10.7-15.3); LYMPH % 14.6 % (8-40); MCH 30.7 pg (25.7-33.7); MCHC 34.6 g/dl (32.0-36.0); MEAN CELL VOLUME 88.9 fl (80-96); MONO % 6.4 % (3.8-10.2); NEUT % 74.5 % (42.8-82.8); PLATELET COUNT 315 10^3/uL (134-434); RBC 4.19 M/mm3 (3.60-5.2); RDW 13.1 % (11.6-15.6); WHITE BLOOD COUNT 8.4 K/mm3 (4.0-10.0)
[2023-08-30] MEDS: ENOXAPARIN NA (PORCINE) 40 MG/0.4 ML DISP.SYRIN SQ SCH (09:49)
[2023-08-30 09:57] LABS: POTASSIUM 4.1 mmol/L (3.5-5.1)
[2023-08-30 10:04] LABS: CALCIUM 9.1 mg/dL (8.5-10.1)
[2023-08-30 10:05] LABS: ALBUMIN 3.3 g/dl (3.4-5.0); BLOOD UREA NITROGEN 9.5 mg/dL (7-18)
[2023-08-30 10:08] LABS: CREATININE 0.6 mg/dL (0.55-1.3)
[2023-08-30 10:09] LABS: BILIRUBIN,TOTAL 2.8 mg/dL (0.2-1); TOT PROT 6.8 g/dl (6.4-8.2)
[2023-08-30] MEDS: ACETAMINOPHEN 1000 MG/100 ML BAG IVPB PRN (17:54)
[2023-08-30] MEDS: POLYETHYLENE GLYCOL (HEALTHYLAX) 3350 17 GM PACKET PO SCH (21:31)
[2023-08-30] MEDS ORDERED: levoFLOXacin 750 MG TABLET PO SCH (22:00)
[2023-08-31 09:10] LABS: BASO % 0.3 % (0-2.0); EOS % 5.1 % (0-4.5); HEMATOCRIT 39.4 % (32.4-45.2); HEMOGLOBIN 13.2 GM/dL (10.7-15.3); LYMPH % 20.3 % (8-40); MCH 30.1 pg (25.7-33.7); MCHC 33.4 g/dl (32.0-36.0); MEAN CELL VOLUME 90.2 fl (80-96); MEAN PLT VOLUME 7.9 fl (7.5-11.1); MONO % 5.9 % (3.8-10.2); NEUT % 68.4 % (42.8-82.8); PLATELET COUNT 315 10^3/uL (134-434); RBC 4.37 M/mm3 (3.60-5.2); WHITE BLOOD COUNT 6.2 K/mm3 (4.0-10.0)
[2023-08-31 09:25] LABS: BLOOD UREA NITROGEN 7.9 mg/dL (7-18); CALCIUM 9.3 mg/dL (8.5-10.1)
[2023-08-31 09:26] LABS: ALBUMIN 3.4 g/dl (3.4-5.0)
[2023-08-31 09:29] LABS: CREATININE 0.7 mg/dL (0.55-1.3)
[2023-08-31 09:30] LABS: BILIRUBIN,TOTAL 1.3 mg/dL (0.2-1); TOT PROT 7.1 g/dl (6.4-8.2)
[2023-09-01 07:03] VITALS: RESP 18
[2023-09-01 10:25] VITALS: BP 107/68; PULSE 78; TEMP 98.3
== END 2023-09-01 12:47 | disposition home or self-care (01) | DRG 392 ==
LOC: JER 09:08 → JERBED 15:05 → J8W 18:56 → OBSVTOIN 21:15
PROVIDERS: ADMIT Family Medicine; ATTEND Family Medicine
DX: K57.32 Diverticulitis of large intestine without perforation or abscess without bleeding (principal); E11.9 Type 2 diabetes mellitus without complications; R11.0 Nausea; K21.9 Gastro-esophageal reflux disease without esophagitis; D64.9 Anemia, unspecified; K59.00 Constipation, unspecified; M50.30 Other cervical disc degeneration, unspecified cervical region; M51.36 Other intervertebral disc degeneration, lumbar region; R94.31 Abnormal electrocardiogram [ECG] [EKG]; Z98.891 History of uterine scar from previous surgery
CPT/HCPCS: 36415; 74177-TC; 80053; 81003; 83036; 83605; 83690; 84703; 85025; 86140; 86850; 86900; 86901; 87081; 87086; 93005; 93010; 93306-TC; 99285-25; G0378; J0131; Q9967

== ENCOUNTER 2023-10-19 04:20 | Inpatient (IN) | payer OTHER ==
[2023-10-09 10:51] VITALS: BMI 34.7
[2023-10-19] MEDS: GABAPENTIN 300 MG CAPSULE PO ONE (06:55)
[2023-10-19] MEDS ORDERED: cefOXitin SODIUM 2 GM VIAL (RESTRICTED TO ID) IVPB ONE (07:00)
[2023-10-19] MEDS: ACETAMINOPHEN 500 MG TABLET (FP) PO ONE (07:09)
[2023-10-19] MEDS ORDERED: BUPIVACAINE HCL/PF 0.25% (2.5MG/ML) 10 ML VIAL ONE ×2 (08:11→09:41)
[2023-10-19] MEDS ORDERED: INDOCYANINE GREEN 25 MG/10 ML VIAL IVPUSH ONE ×2 (08:19→10:42)
[2023-10-19] MEDS ORDERED: FENTANYL CITRATE/PF 50 MCG/ML VIAL ONE (08:23)
[2023-10-19] MEDS ORDERED: MIDAZOLAM HCL 2 MG/2 ML SINGLE DOSE VIAL ONE (08:24)
[2023-10-19] MEDS ORDERED: PROPOFOL 40 ML ONE (08:24)
[2023-10-19] MEDS ORDERED: ROCURONIUM BROMIDE 50 MG/5 ML SYRINGE ONE ×2 (08:24→09:27)
[2023-10-19] MEDS: cefOXitin SODIUM 2 GM VIAL (RESTRICTED TO ID) IVPB ONE (08:59)
[2023-10-19] MEDS: INDOCYANINE GREEN 25 MG/10 ML VIAL IVPUSH ONE ×2 (09:00→12:00)
[2023-10-19] MEDS ORDERED: HEPARIN NA (PORCINE) 5,000 UNITS/ML 1ML VIAL ONE (09:22)
[2023-10-19] MEDS ORDERED: HYDROmorphone HCl 2 MG/ML VIAL ONE (09:28)
[2023-10-19] MEDS: BUPIVACAINE HCL/PF 0.25% (2.5MG/ML) 10 ML VIAL IJ ONE ×2 (09:43)
[2023-10-19] MEDS ORDERED: SUGAMMADEX SODIUM 200 MG/2 ML VIAL ONE (11:38)
[2023-10-19] MEDS ORDERED: ALBUTEROL SO4 HFA INHALER IH ONE (12:24)
[2023-10-19] MEDS ORDERED: ONDANSETRON 4 MG/2 ML VIAL IVPUSH PRN (13:57)
[2023-10-19] MEDS: ACETAMINOPHEN 1000 MG/100 ML BAG IVPB SCH (15:00)
[2023-10-19] MEDS: CEFOXITIN SODIUM 2 GM in DEXTROSE 5%-WATER 100 ML IVPB ONE (15:04)
[2023-10-19] MEDS: SCOPOLAMINE HYDROBROMIDE 1 PATCH PATCH.TD72 TD ONE (15:04)
[2023-10-19] MEDS: LACTATED RINGERS SOLUTION 1,000 ML IV SCH (16:40)
[2023-10-19] MEDS: CEFAZOLIN SODIUM 2 GM in DEXTROSE 5%-WATER 100 ML IVPB SCH (17:58)
[2023-10-19] MEDS: ONDANSETRON 4 MG/2 ML VIAL IVPUSH ONE (21:42)
[2023-10-20] MEDS: morphine SULFATE 4 MG/ML VIAL IVPUSH PRN (00:02)
[2023-10-20 07:55] LABS: HEMATOCRIT 34.6 % (32.4-45.2); HEMOGLOBIN 11.7 GM/dL (10.7-15.3); MCH 30.5 pg (25.7-33.7); MCHC 33.7 g/dl (32.0-36.0); MEAN CELL VOLUME 90.5 fl (80-96); MEAN PLT VOLUME 8.3 fl (7.5-11.1); PLATELET COUNT 284 10^3/uL (134-434); RBC 3.83 M/mm3 (3.60-5.2); RDW 13.1 % (11.6-15.6); WHITE BLOOD COUNT 9.3 K/mm3 (4.0-10.0)
[2023-10-20 08:26] LABS: CALCIUM 8.7 mg/dL (8.5-10.1)
[2023-10-20 08:30] LABS: CREATININE 0.6 mg/dL (0.55-1.3)
[2023-10-20] MEDS: ENOXAPARIN NA (PORCINE) 40 MG/0.4 ML DISP.SYRIN SQ SCH (09:56)
[2023-10-20] MEDS: PANTOPRAZOLE SODIUM 40 MG VIAL IVPUSH SCH (09:56)
[2023-10-20] MEDS ORDERED: morphine SULFATE 4 MG/ML VIAL IVPUSH PRN (16:06)
[2023-10-20] MEDS: ACETAMINOPHEN 1000 MG/100 ML BAG IVPB SCH (16:56)
[2023-10-20] MEDS: ONDANSETRON 4 MG/2 ML VIAL IVPUSH PRN (16:56)
[2023-10-21 08:10] LABS: HEMATOCRIT 31.8 % (32.4-45.2); HEMOGLOBIN 10.9 GM/dL (10.7-15.3); MCH 30.6 pg (25.7-33.7); MCHC 34.1 g/dl (32.0-36.0); MEAN CELL VOLUME 89.6 fl (80-96); MEAN PLT VOLUME 7.7 fl (7.5-11.1); PLATELET COUNT 239 10^3/uL (134-434); RBC 3.55 M/mm3 (3.60-5.2); RDW 13.2 % (11.6-15.6); WHITE BLOOD COUNT 8.3 K/mm3 (4.0-10.0)
[2023-10-21 08:31] LABS: CALCIUM 8.8 mg/dL (8.5-10.1)
[2023-10-21 08:32] LABS: BLOOD UREA NITROGEN 6.4 mg/dL (7-18)
[2023-10-21 08:35] LABS: CREATININE 0.6 mg/dL (0.55-1.3)
[2023-10-22] MEDS: oxyCODONE HCL 5 MG TABLET PO PRN ×2 (02:51→14:01)
[2023-10-22] MEDS: [UNRECOGNIZED DRUG - OTHER] PO SCH (06:49)
[2023-10-22] MEDS: DAPAGLIFLOZIN PO SCH (06:49)
[2023-10-22] MEDS: METFORMIN PO SCH (06:49)
[2023-10-22 08:05] LABS: HEMATOCRIT 32.2 % (32.4-45.2); HEMOGLOBIN 10.8 GM/dL (10.7-15.3); MCH 30.6 pg (25.7-33.7); MCHC 33.5 g/dl (32.0-36.0); MEAN CELL VOLUME 91.3 fl (80-96); MEAN PLT VOLUME 8.2 fl (7.5-11.1); PLATELET COUNT 239 10^3/uL (134-434); RBC 3.52 M/mm3 (3.60-5.2); RDW 13.2 % (11.6-15.6); WHITE BLOOD COUNT 7.3 K/mm3 (4.0-10.0)
[2023-10-22 08:23] LABS: POTASSIUM 4.1 mmol/L (3.5-5.1)
[2023-10-22 08:26] LABS: CALCIUM 8.8 mg/dL (8.5-10.1)
[2023-10-22 08:27] LABS: BLOOD UREA NITROGEN 4.4 mg/dL (7-18)
[2023-10-22 08:30] LABS: CREATININE 0.6 mg/dL (0.55-1.3)
[2023-10-22] MEDS: ACETAMINOPHEN 325 MG TABLET (FP) PO SCH (09:49)
[2023-10-22 21:14] LABS: EPI CELLS 7 /uL (0-25.1); HYALINE CASTS 0 /uL (0-3.1); URINE APPEARANCE CLEAR; URINE BACTERIA 6 /uL (0-1359); URINE BILIRUBIN NEGATIVE (NEGATIVE); URINE COLOR ORANGE; URINE GLUCOSE (UA) 3+ (NEGATIVE); URINE KETONE NEGATIVE (NEGATIVE); URINE LEUK ESTERASE NEGATIVE (NEGATIVE); URINE NITRITE NEGATIVE (NEGATIVE); URINE PROTEIN NEGATIVE (NEGATIVE); URINE RBC 1755 /uL (0-23.9); URINE UROBILINOGEN 0.2 mg/dL (0.2-1.0); URINE WBC 10 /uL (0-25.8)
[2023-10-23 08:12] LABS: POTASSIUM 3.5 mmol/L (3.5-5.1)
[2023-10-23 08:13] LABS: BASO % 0.1 % (0-2.0); EOS % 4.6 % (0-4.5); HEMATOCRIT 32.6 % (32.4-45.2); HEMOGLOBIN 11.2 GM/dL (10.7-15.3); MCH 30.5 pg (25.7-33.7); MCHC 34.5 g/dl (32.0-36.0); MEAN CELL VOLUME 88.6 fl (80-96); MEAN PLT VOLUME 8.2 fl (7.5-11.1); MONO % 5.5 % (3.8-10.2); NEUT % 72.8 % (42.8-82.8); PLATELET COUNT 266 10^3/uL (134-434); RBC 3.68 M/mm3 (3.60-5.2); RDW 12.9 % (11.6-15.6); WHITE BLOOD COUNT 7.9 K/mm3 (4.0-10.0)
[2023-10-23 08:16] LABS: CALCIUM 8.6 mg/dL (8.5-10.1)
[2023-10-23 08:17] LABS: ALBUMIN 2.7 g/dl (3.4-5.0); BLOOD UREA NITROGEN 5.9 mg/dL (7-18)
[2023-10-23 08:21] LABS: BILIRUBIN,TOTAL 1.1 mg/dL (0.2-1); CREATININE 0.4 mg/dL (0.55-1.3)
[2023-10-23 08:22] LABS: TOT PROT 5.6 g/dl (6.4-8.2)
[2023-10-23] MEDS: PANTOPRAZOLE 40 MG TABLET PO SCH (10:30)
[2023-10-23 14:15] LABS: EPI CELLS 18 /uL (0-25.1); HYALINE CASTS 0 /uL (0-3.1); URINE APPEARANCE CLEAR; URINE BACTERIA 8 /uL (0-1359); URINE BILIRUBIN NEGATIVE (NEGATIVE); URINE COLOR YELLOW; URINE GLUCOSE (UA) 2+ (NEGATIVE); URINE KETONE 1+ (NEGATIVE); URINE LEUK ESTERASE NEGATIVE (NEGATIVE); URINE NITRITE NEGATIVE (NEGATIVE); URINE PROTEIN NEGATIVE (NEGATIVE); URINE RBC 324 /uL (0-23.9); URINE UROBILINOGEN 0.2 mg/dL (0.2-1.0); URINE WBC 8 /uL (0-25.8)
[2023-10-23 15:12] VITALS: BP 114/70; PULSE 89; RESP 18; TEMP 98.1
== END 2023-10-23 15:17 | disposition home or self-care (01) | DRG 331 ==
LOC: J2C 04:20 → J8W 16:31
PROVIDERS: ADMIT Family Medicine; ATTEND Family Medicine
PROC: 0TJB8ZZ Inspection of Bladder, Via Natural or Artificial Opening Endoscopic (ICD-10-PCS; 2023-10-19)
PROC: 0T9B80Z Drainage of Bladder with Drainage Device, Via Natural or Artificial Opening Endoscopic (ICD-10-PCS; 2023-10-19)
PROC: 0DBN4ZZ Excision of Sigmoid Colon, Percutaneous Endoscopic Approach (ICD-10-PCS; principal; 2023-10-19 08:00)
PROC: 0DNW4ZZ Release Peritoneum, Percutaneous Endoscopic Approach (ICD-10-PCS; 2023-10-19 08:00)
DX: K57.92 Diverticulitis of intestine, part unspecified, without perforation or abscess without bleeding (principal); R31.9 Hematuria, unspecified; K66.0 Peritoneal adhesions (postprocedural) (postinfection); K21.9 Gastro-esophageal reflux disease without esophagitis; R73.03 Prediabetes
CPT/HCPCS: 36415; 74176-TC; 80048; 80053; 81003; 81025; 82010; 82962; 85025; 85027; 86140; 86850; 86900; 86901; 88307-TC; 94010; 94760; J0131; J1644